=== PATIENT | female | born 1965 | race Caucasian/White ===

== ENCOUNTER 2016-05-26 23:19 | Emergency (ER) | payer OTHER ==
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
--- NOTE | 2016-05-27 00:23 | ED MED RECONCILIATION SUMMARY ---
Patient: JOHN STROUD Medication Reconciliation Report [facility] VisitID: [id number] [address] [place] [address] 51y, F Registration Date/Time: 05/26/2016 Weight: 95.2 kg Height/Length: 64 in. BMI: 36.1 ALLERGIES: Ampicillin, Contrast, Penicillins The patient's Home Medications are listed below: THE FOLLOWING MEDICATIONS NEED TO BE RECONCILED: Aspirin Low Dose Oral (81 mg) Atorvastatin Calcium Oral 40 mg, daily Chantix Oral Clopidogrel Bisulfate Oral 75 mg, daily Emtriva Oral (200 mg) 1 capsule, daily Losartan Potassium Oral 100 mg, daily Metoprolol Tartrate Oral (100 mg) 1 tablet, 2 times daily Nitroglycerin Selzentry Oral (150 mg) 1 tablet, BID Zetia Oral 10 mg, daily The source(s) of the original Home Medication information: patient The following Medications were given to the patient in the Emergency Department: None. The following Medications were prescribed to the patient: Hydrocodone/APAP 5mg / 325mg: take 1-2 orally every 6 hours as needed for pain. Dispense five (5). No refill. -- Mariano Fernandes MD
--- NOTE | 2016-05-27 00:23 | ED DISCHARGE INSTRUCTIONS ---
Patient: JOHN STROUD General Instructions [facility] VisitID: [id number] [address] [place] [address] 51y, F Registration Date/Time: 05/26/2016 Dental pain. INSTRUCTIONS No driving or operating machinery while taking medication. Warnings: Further evaluation is necessary. GENERAL WARNINGS: Return or contact your physician immediately if your condition worsens or changes unexpectedly, if not improving as expected, or if other problems arise. Prescription Medications: Hydrocodone/APAP 5mg / 325mg: take 1-2 orally every 6 hours as needed for pain. Dispense five (5). No refill. Follow-up: Follow up with a dentist tomorrow as scheduled. ADDITIONAL INFORMATION Dental Pain A crack or cavity in the tooth, which exposes the sensitive inner area of the tooth can cause tooth pain. An infection in the gum or the root of the tooth can cause pain and swelling. The pain is often made worse by drinking hot or cold fluids, or biting on hard foods. Pain may spread from the tooth to the ear or jaw on the same side. Home Care: Avoid hot and cold foods and liquids since your tooth may be sensitive to temperature changes. If your tooth is chipped or cracked, or if there is a large open cavity, apply OIL OF CLOVES (available [id number]-rur-kvqtomy in drug stores) directly to the tooth to reduce pain. Some pharmacies carry an [id number] "toothache kit." This contains a paste, which can be applied over the exposed tooth to decrease sensitivity. A cold pack on your jaw over the sore area may help reduce pain. You may use acetaminophen (Tylenol) or ibuprofen (Motrin, Advil) to control pain, unless another medicine was prescribed. [ NOTE: If you have chronic liver or kidney disease or ever had a stomach ulcer or GI bleeding, talk with your doctor before using these medicines.] If you have signs of an infection, an antibiotic will be given. Take it as directed. Follow-Up as directed with a dentist. Your pain may go away with the treatment given. However, only a dentist can fully evaluate and treat the cause and prevent the pain from coming back again. TOOTHACHE IS A SIGN OF DISEASE IN YOUR TOOTH AND SHOULD BE EXAMINED AND TREATED BY A DENTIST. Get Prompt Medical Attention if any of the following occur: Your face becomes swollen or red Pain worsens or spreads to the neck Fever over 100.4 F (38.0 C) Unusual drowsiness; headache or stiff neck; weakness or fainting Pus drains from the tooth Difficulty swallowing or breathing Hydrocodone Bitartrate, Acetaminophen Oral tablet What is this medicine? ACETAMINOPHEN; HYDROCODONE (a set a JUAN A theresa fen; tanna droe KOE done) is a pain reliever. It is used to treat mild to moderate pain. How should I use this medicine? Take this medicine by mouth. Swallow it with a full glass of water. Follow the directions on the prescription label. If the medicine upsets your stomach, take the medicine with food or milk. Do not take more than you are told to take. Talk to your stock driver regarding the use of this medicine in children. This medicine is not approved for use in children. What side effects may I notice from receiving this medicine? Side effects that you should report to your doctor or health child care leader as soon as possible: allergic reactions like skin rash, itching or hives, swelling of the face, lips, or tongue breathing problems confusion feeling faint or lightheaded, falls stomach pain yellowing of the eyes or skin Side effects that usually do not require medical attention (report to your doctor or health child care leader if they continue or are bothersome): nausea, vomiting stomach upset What may interact with this medicine? alcohol antihistamines isoniazid medicines for depression, anxiety, or psychotic disturbances medicines for sleep muscle relaxants naltrexone narcotic medicines (opiates) for pain phenobarbital ritonavir tramadol What if I miss a dose? If you miss a dose, take it as soon as you can. If it is almost time for your next dose, take only that dose. Do not take double or extra doses. Where should I keep my medicine? Keep out of the reach of children. This medicine can be abused. Keep your medicine in a safe place to protect it from theft. Do not share this medicine with anyone. Selling or giving away this medicine is dangerous and against the law. Store at room temperature between 15 and 30 degrees C (59 and 86 degrees F). Protect from light. Keep container tightly closed. Throw away any unused medicine after the expiration date. Discard unused medicine and used packaging carefully. Pets and children can be harmed if they find used or lost packages. What should I tell my health care provider before I take this medicine? They need to know if you have any of these conditions: brain tumor Crohn's disease, inflammatory bowel disease, or ulcerative colitis drink more than 3 alcohol-containing drinks per day drug abuse or addiction head injury heart or circulation problems kidney disease or problems going to the bathroom liver disease lung disease, asthma, or breathing problems an unusual or allergic reaction to acetaminophen, hydrocodone, other opioid analgesics, other medicines, foods, dyes, or preservatives or trying to get breast-feeding What should I watch for while using this medicine? Tell your doctor or health child care leader if your pain does not go away, if it gets worse, or if you have new or a different type of pain. You may develop tolerance to the medicine. Tolerance means that you will need a higher dose of the medicine for pain relief. Tolerance is normal and is expected if you take the medicine for a long time. Do not suddenly stop taking your medicine because you may develop a severe reaction. Your body becomes used to the medicine. This does NOT mean you are addicted. Addiction is a behavior related to getting and using a drug for a non-medical reason. If you have pain, you have a medical reason to take pain medicine. Your doctor will tell you how much medicine to take. If your doctor wants you to stop the medicine, the dose will be slowly lowered over time to avoid any side effects. You may get drowsy or dizzy when you first start taking the medicine or change doses. Do not drive, use machinery, or do anything that may be dangerous until you know how the medicine affects you. Stand or sit up slowly. There are different types of narcotic medicines (opiates) for pain. If you take more than one type at the same time, you may have more side effects. Give your health care provider a list of all medicines you use. Your doctor will tell you how much medicine to take. Do not take more medicine than directed. Call emergency for help if you have problems breathing. The medicine will cause constipation. Try to have a bowel movement at least every 2 to 3 days. If you do not have a bowel movement for 3 days, call your doctor or health child care leader. Too much acetaminophen can be very dangerous. Do not take Tylenol (acetaminophen) or medicines that contain acetaminophen with this medicine. Many non-prescription medicines contain acetaminophen. Always read the labels carefully. You have been given the following additional information: Dental Pain Hydrocodone Bitartrate, Acetaminophen Oral tablet No driving or operating machinery while taking medication. (Electronically signed by Mariano Fernandes MD 05/27/2016 0:22)
--- NOTE | 2016-05-27 00:23 | ED MAR SUMMARY ---
..... Medication Administration Record [facility] [address] [place], [place] [id number] Patient: JOHN STROUD Visit ID: [id number] 51y, F Weight: 95.2 kg Height/Length: 64 in BMI: 36.1 ALLERGIES: Penicillins, Ampicillin, Contrast
--- NOTE | 2016-05-27 00:23 | ED DISCHARGE INSTRUCTIONS ---
Patient: JOHN STROUD General Instructions [facility] VisitID: [id number] [address] [place] [address] 51y, F Registration Date/Time: 05/26/2016 Dental pain. INSTRUCTIONS No driving or operating machinery while taking medication. Warnings: Further evaluation is necessary. GENERAL WARNINGS: Return or contact your physician immediately if your condition worsens or changes unexpectedly, if not improving as expected, or if other problems arise. Prescription Medications: Hydrocodone/APAP 5mg / 325mg: take 1-2 orally every 6 hours as needed for pain. Dispense five (5). No refill. Follow-up: Follow up with a dentist tomorrow as scheduled. ADDITIONAL INFORMATION Dental Pain A crack or cavity in the tooth, which exposes the sensitive inner area of the tooth can cause tooth pain. An infection in the gum or the root of the tooth can cause pain and swelling. The pain is often made worse by drinking hot or cold fluids, or biting on hard foods. Pain may spread from the tooth to the ear or jaw on the same side. Home Care: Avoid hot and cold foods and liquids since your tooth may be sensitive to temperature changes. If your tooth is chipped or cracked, or if there is a large open cavity, apply OIL OF CLOVES (available [id number] in drug stores) directly to the tooth to reduce pain. Some pharmacies carry an [id number]-yyarbtl "toothache kit." This contains a paste, which can be applied over the exposed tooth to decrease sensitivity. A cold pack on your jaw over the sore area may help reduce pain. You may use acetaminophen (Tylenol) or ibuprofen (Motrin, Advil) to control pain, unless another medicine was prescribed. [ NOTE: If you have chronic liver or kidney disease or ever had a stomach ulcer or GI bleeding, talk with your doctor before using these medicines.] If you have signs of an infection, an antibiotic will be given. Take it as directed. Follow-Up as directed with a dentist. Your pain may go away with the treatment given. However, only a dentist can fully evaluate and treat the cause and prevent the pain from coming back again. TOOTHACHE IS A SIGN OF DISEASE IN YOUR TOOTH AND SHOULD BE EXAMINED AND TREATED BY A DENTIST. Get Prompt Medical Attention if any of the following occur: Your face becomes swollen or red Pain worsens or spreads to the neck Fever over 100.4 F (38.0 C) Unusual drowsiness; headache or stiff neck; weakness or fainting Pus drains from the tooth Difficulty swallowing or breathing Hydrocodone Bitartrate, Acetaminophen Oral tablet What is this medicine? ACETAMINOPHEN; HYDROCODONE (a set a JUAN A theresa fen; tanna droe KOE done) is a pain reliever. It is used to treat mild to moderate pain. How should I use this medicine? Take this medicine by mouth. Swallow it with a full glass of water. Follow the directions on the prescription label. If the medicine upsets your stomach, take the medicine with food or milk. Do not take more than you are told to take. Talk to your scrap yard worker regarding the use of this medicine in children. This medicine is not approved for use in children. What side effects may I notice from receiving this medicine? Side effects that you should report to your doctor or health zoo caretaker as soon as possible: allergic reactions like skin rash, itching or hives, swelling of the face, lips, or tongue breathing problems confusion feeling faint or lightheaded, falls stomach pain yellowing of the eyes or skin Side effects that usually do not require medical attention (report to your doctor or health zoo caretaker if they continue or are bothersome): nausea, vomiting stomach upset What may interact with this medicine? alcohol antihistamines isoniazid medicines for depression, anxiety, or psychotic disturbances medicines for sleep muscle relaxants naltrexone narcotic medicines (opiates) for pain phenobarbital ritonavir tramadol What if I miss a dose? If you miss a dose, take it as soon as you can. If it is almost time for your next dose, take only that dose. Do not take double or extra doses. Where should I keep my medicine? Keep out of the reach of children. This medicine can be abused. Keep your medicine in a safe place to protect it from theft. Do not share this medicine with anyone. Selling or giving away this medicine is dangerous and against the law. Store at room temperature between 15 and 30 degrees C (59 and 86 degrees F). Protect from light. Keep container tightly closed. Throw away any unused medicine after the expiration date. Discard unused medicine and used packaging carefully. Pets and children can be harmed if they find used or lost packages. What should I tell my health care provider before I take this medicine? They need to know if you have any of these conditions: brain tumor Crohn's disease, inflammatory bowel disease, or ulcerative colitis drink more than 3 alcohol-containing drinks per day drug abuse or addiction head injury heart or circulation problems kidney disease or problems going to the bathroom liver disease lung disease, asthma, or breathing problems an unusual or allergic reaction to acetaminophen, hydrocodone, other opioid analgesics, other medicines, foods, dyes, or preservatives or trying to get breast-feeding What should I watch for while using this medicine? Tell your doctor or health zoo caretaker if your pain does not go away, if it gets worse, or if you have new or a different type of pain. You may develop tolerance to the medicine. Tolerance means that you will need a higher dose of the medicine for pain relief. Tolerance is normal and is expected if you take the medicine for a long time. Do not suddenly stop taking your medicine because you may develop a severe reaction. Your body becomes used to the medicine. This does NOT mean you are addicted. Addiction is a behavior related to getting and using a drug for a non-medical reason. If you have pain, you have a medical reason to take pain medicine. Your doctor will tell you how much medicine to take. If your doctor wants you to stop the medicine, the dose will be slowly lowered over time to avoid any side effects. You may get drowsy or dizzy when you first start taking the medicine or change doses. Do not drive, use machinery, or do anything that may be dangerous until you know how the medicine affects you. Stand or sit up slowly. There are different types of narcotic medicines (opiates) for pain. If you take more than one type at the same time, you may have more side effects. Give your health care provider a list of all medicines you use. Your doctor will tell you how much medicine to take. Do not take more medicine than directed. Call emergency for help if you have problems breathing. The medicine will cause constipation. Try to have a bowel movement at least every 2 to 3 days. If you do not have a bowel movement for 3 days, call your doctor or health zoo caretaker. Too much acetaminophen can be very dangerous. Do not take Tylenol (acetaminophen) or medicines that contain acetaminophen with this medicine. Many non-prescription medicines contain acetaminophen. Always read the labels carefully. You have been given the following additional information: Dental Pain Hydrocodone Bitartrate, Acetaminophen Oral tablet No driving or operating machinery while taking medication. (Electronically signed by Mariano Fernandes MD 05/27/2016 0:22)
--- NOTE | 2016-05-27 00:23 | ED MED RECONCILIATION SUMMARY ---
Patient: JOHN STROUD Medication Reconciliation Report [facility] VisitID: [id number] [address] [place] [address] 51y, F Registration Date/Time: 05/26/2016 Weight: 95.2 kg Height/Length: 64 in. BMI: 36.1 ALLERGIES: Ampicillin, Contrast, Penicillins The patient's Home Medications are listed below: THE FOLLOWING MEDICATIONS NEED TO BE RECONCILED: Aspirin Low Dose Oral (81 mg) Atorvastatin Calcium Oral 40 mg, daily Chantix Oral Clopidogrel Bisulfate Oral 75 mg, daily Emtriva Oral (200 mg) 1 capsule, daily Losartan Potassium Oral 100 mg, daily Metoprolol Tartrate Oral (100 mg) 1 tablet, 2 times daily Nitroglycerin Selzentry Oral (150 mg) 1 tablet, BID Zetia Oral 10 mg, daily The source(s) of the original Home Medication information: patient The following Medications were given to the patient in the Emergency Department: None. The following Medications were prescribed to the patient: Hydrocodone/APAP 5mg / 325mg: take 1-2 orally every 6 hours as needed for pain. Dispense five (5). No refill. -- Mariano Fernandes MD
--- NOTE | 2016-05-27 00:23 | ED MAR SUMMARY ---
..... Medication Administration Record [facility] [address] [place], [place] [id number] Patient: JOHN STROUD Visit ID: [id number] 51y, F Weight: 95.2 kg Height/Length: 64 in BMI: 36.1 ALLERGIES: Penicillins, Ampicillin, Contrast
== END 2016-05-27 00:15 | disposition home or self-care (01) ==
LOC: ED SRH 23:19
DX: K08.89 Other specified disorders of teeth and supporting structures (principal); I25.2 Old myocardial infarction; I10 Essential (primary) hypertension; J98.4 Other disorders of lung; Z79.82 Long term (current) use of aspirin; Z79.899 Other long term (current) drug therapy; F17.210 Nicotine dependence, cigarettes, uncomplicated; Z88.0 Allergy status to penicillin; Z88.1 Allergy status to other antibiotic agents; Z91.041 Radiographic dye allergy status

== ENCOUNTER 2016-08-30 02:28 | Emergency (ER) | payer OTHER ==
--- NOTE | 2016-08-30 04:40 | ED NURSING NOTES ---
Clinical Report - Nurses [facility] [place] [place] [address] 08/30/2016 2:28 Patient: JOHN STROUD NURSING PROGRESS NOTES GENERAL / NEURO / PSYCH: Alert. Oriented X 4. RESPIRATORY: No respiratory distress. SKIN: Skin is warm and dry. ( Shoulder injury. Patient stable at this time.). --02:47 Yaneth Steele. DISPOSITION / DISCHARGE The patient left the Emergency Department before triage; patient was accompanied by a sculpture instructor. The patient appears to be alert, oriented x4, coherent and in no acute distress (Patient yelling upon arrival and departure.). The patient stated is leaving the ED due to the long waiting time. Notified the ED physician of patient departure. Prior to leaving the ED, she was advised to stay for completion of treatment and return if needed. Patient left without signing form prior to leaving. She left the Emergency Department ambulatory and via private vehicle. ( Patient was informed during registration that an RN would be out to get her as soon as possible. RN inquired with patient about her symptoms and found her to be stable and in no immediate distress. Patient left prior to triage.). --04:41 Yaneth Steele. Locked/Released at 08/30/2016 5:50 by Yaneth Steele,
--- NOTE | 2016-08-30 04:40 | ED CLINICAL REPORT ---
Clinical Report - Physicians/Mid Levels [facility] [address] [place] [place] [address] 08/30/2016 2:28 Patient: JOHN STROUD *This is a preliminary document and is subject to change Time Seen: 02:54; initial patient contact. Ralf Blevins Dr.
--- NOTE | 2016-08-30 04:40 | ED NURSING NOTES ---
Clinical Report - Nurses [facility] [place] [address] 08/30/2016 2:28 Patient: JOHN STROUD NURSING PROGRESS NOTES GENERAL / NEURO / PSYCH: Alert. Oriented X 4. RESPIRATORY: No respiratory distress. SKIN: Skin is warm and dry. ( Shoulder injury. Patient stable at this time.). --02:47 Yaneth Steele. DISPOSITION / DISCHARGE The patient left the Emergency Department before triage; patient was accompanied by a web engineer. The patient appears to be alert, oriented x4, coherent and in no acute distress (Patient yelling upon arrival and departure.). The patient stated is leaving the ED due to the long waiting time. Notified the ED physician of patient departure. Prior to leaving the ED, she was advised to stay for completion of treatment and return if needed. Patient left without signing form prior to leaving. She left the Emergency Department ambulatory and via private vehicle. ( Patient was informed during registration that an RN would be out to get her as soon as possible. RN inquired with patient about her symptoms and found her to be stable and in no immediate distress. Patient left prior to triage.). --04:41 Yaneth Steele. Locked/Released at 08/30/2016 5:50 by Yaneth Steele,
--- NOTE | 2016-08-30 04:40 | ED CLINICAL REPORT ---
Clinical Report - Physicians/Mid Levels [facility] [address] [place] [address] 08/30/2016 2:28 Patient: JOHN STROUD *This is a preliminary document and is subject to change Time Seen: 02:54; initial patient contact. Ralf Blevins Dr.
--- NOTE | 2016-08-30 20:49 | ED MAR SUMMARY ---
..... Medication Administration Record [facility] [address] [place], [place] [id number] Patient: JOHN STROUD Kimberlee Visit ID: [id number] 51y, F Weight: (not available) Height/Length: (not available) BMI: (not available) ALLERGIES:
--- NOTE | 2016-08-30 20:49 | ED MED RECONCILIATION SUMMARY ---
Patient: JOHN STROUD Medication Reconciliation Report [facility] VisitID: [id number] [address] [place] [address] 51y, F Registration Date/Time: 08/30/2016 Weight: (not available) Height/Length: (not available) BMI: (not available) ALLERGIES: The patient's Home Medications are listed below: Not obtained. The source(s) of the original Home Medication information: Not obtained. The following Medications were given to the patient in the Emergency Department: None. The following Medications were prescribed to the patient: None.
--- NOTE | 2016-08-30 20:49 | ED MED RECONCILIATION SUMMARY ---
Patient: JOHN STROUD Medication Reconciliation Report [facility] VisitID: [id number] [address] [place] [place] [address] 51y, F Registration Date/Time: 08/30/2016 Weight: (not available) Height/Length: (not available) BMI: (not available) ALLERGIES: The patient's Home Medications are listed below: Not obtained. The source(s) of the original Home Medication information: Not obtained. The following Medications were given to the patient in the Emergency Department: None. The following Medications were prescribed to the patient: None.
--- NOTE | 2016-08-30 20:49 | ED MAR SUMMARY ---
..... Medication Administration Record [facility] [address] [place], [place] [id number] Patient: JOHN STROUD Kimberlee Visit ID: [id number] 51y, F Weight: (not available) Height/Length: (not available) BMI: (not available) ALLERGIES:
== END 2016-08-30 03:39 | disposition left against medical advice (07) ==
LOC: ED SRH 02:28
DX: Z53.21 Procedure and treatment not carried out due to patient leaving prior to being seen by health care provider (principal)

== ENCOUNTER 2016-09-11 11:17 | Emergency (ER) | payer OTHER ==
--- NOTE | 2016-09-11 13:17 | DIAGNOSTIC IMAGING REPORT ---
PROCEDURE: XR CHEST 1 VIEW INDICATION: CHEST PAIN TECHNIQUE: Portable AP view 12:57 p.m. COMPARISON: Chest 12/22/2014 FINDINGS: Lungs are clear. Heart and mediastinum are normal. Thorax is normal. IMPRESSION: 1. Negative chest.
--- NOTE | 2016-09-11 14:58 | ED ORDER SUMMARY ---
..... Patient: JOHN STROUD OrderSheet [facility] VisitID: [id number] [place] [address] 51y, F Registration Date/Time: 09/11/2016 ORDER SHEET Weight: 97.5 kg (measured) Allergies: PCN, CONTRAST DYE, Amoxicillin GENERAL ORDERS: ---- (12:43 09/11/2016 Debbie R.NPlacido verbal order read back to Pawan Rivera) (Cancelled: Other13:44 Sarthakeck R.N.) Chest 1V Urgent (12:48 09/11/2016 Pawan Rivera) (Ack 12:51 Maximino) (12:57 oberts R.N.) Cardiac Panel Stat (12:49 09/11/2016 Pawan Rivera) (Ack 12:51 Maximino) (21:26 oberts R.N.) Urine Drug Screen Urgent (12:49 09/11/2016 Pawan Rivera) (Ack 12:51 Maximino) (21:26 SRoberts R.N.) UA-Culture if indicated Urgent (12:49 09/11/2016 Pawan Rivera) (Ack 12:51 Maximino) (21:26 SRoberts R.N.) EKG - ER Stat (12:49 09/11/2016 Pawan Rivera) (Ack 12:51 Maximino) (21:26 SRoberts R.N.) MEDICATION ORDERS: - (12:42 09/11/2016 Debbie Puga verbal order read back to Pawan Rivera) (Cancelled: Other12:42 Sarthakeck R.N.) -- -- (White GI Cocktail 30ml PO) (12:43 09/11/2016 Debbie RPlacidoNPlacido verbal order read back to Pawan Rivera) (12:44 Sarthakeck R.N.) IV FLUIDS: IV NS : initial bolus none -, then 1000 mL/hr for X1 (NOW) (12:49 09/11/2016 Pawan Rivera) (13:00 oberdevin R.N.) ORDER SHEET NOTES: [Electronically signed by Dilcia Quiñonez R.N. (:09/11/2016)] [Electronically signed by Ralf Blevins Dr. (08:49 09/14/2016)] [Electronically locked/signed by Dilcia Quiñonez R.N. (:09/11/2016)]
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
--- NOTE | 2016-09-11 14:58 | ED ORDER SUMMARY ---
..... Patient: JOHN STROUD OrderSheet [facility] VisitID: [id number] [place] [address] 51y, F Registration Date/Time: 09/11/2016 ORDER SHEET Weight: 97.5 kg (measured) Allergies: PCN, CONTRAST DYE, Amoxicillin GENERAL ORDERS: ---- (12:43 09/11/2016 Debbie R.NPlacido verbal order read back to Pawan Rivera) (Cancelled: Other13:44 Sarthakeck R.N.) Chest 1V Urgent (12:48 09/11/2016 Pawan Rivera) (Ack 12:51 Maximino) (12:57 oberts R.N.) Cardiac Panel Stat (12:49 09/11/2016 Pawan Rivera) (Ack 12:51 Maximino) (21:26 oberts R.N.) Urine Drug Screen Urgent (12:49 09/11/2016 Pawan Rivera) (Ack 12:51 Maximino) (21:26 SRoberts R.N.) UA-Culture if indicated Urgent (12:49 09/11/2016 Pawan Rivera) (Ack 12:51 Maximino) (21:26 SRoberts R.N.) EKG - ER Stat (12:49 09/11/2016 Pawan Rivera) (Ack 12:51 Maximino) (21:26 SRoberts R.N.) MEDICATION ORDERS: - (12:42 09/11/2016 Debbie Puga verbal order read back to Pawan Rivera) (Cancelled: Other12:42 Sarthakeck R.N.) -- -- (White GI Cocktail 30ml PO) (12:43 09/11/2016 Debbie RPlacidoNPlacido verbal order read back to Pawan Rivera) (12:44 Sarthakeck R.N.) IV FLUIDS: IV NS : initial bolus none -, then 1000 mL/hr for X1 (NOW) (12:49 09/11/2016 Pawan Rivera) (13:00 oberdevin R.N.) ORDER SHEET NOTES: [Electronically signed by Dilcia Quiñonez R.N. (:09/11/2016)] [Electronically signed by Ralf Blevins Dr. (08:49 09/14/2016)] [Electronically locked/signed by Dilcia Quiñonez R.N. (:09/11/2016)]
--- NOTE | 2016-09-14 08:50 | ED MAR SUMMARY ---
..... Medication Administration Record [facility] [address] [place] [address] Patient: JOHN STROUD Visit ID: [id number] 51y, F Weight: 97.5 kg Height/Length: 64 in BMI: 36.9 ALLERGIES: Amoxicillin, CONTRAST DYE, PCN Given 12:40 09/11/2016 Juanjose Aguirre R.N. Medication Administered: GI COCKTAIL WHITE [PO] (SIMETHICONE), Dose: 30 mL Oral Suspension PO. Medication Ordered: -- -- (White GI Cocktail 30ml PO). Start 13:00 09/11/2016 Dilcia Quiñonez R.NPlacido, Stop 14:00 09/11/2016 Dilcia Quiñonez R.N. Medication Administered: IV NS (SALINE), Dose: IV Fluids over 1 hour(s), Rate: 1000 mL/hr, Dispensed: 1000 mL bag, Site: #1 right AC. Medication Ordered: IV NS : initial bolus none -, then 1000 mL/hr for X1 (NOW).
--- NOTE | 2016-09-14 08:50 | ED DISCHARGE INSTRUCTIONS ---
Patient: JOHN STROUD General Instructions [facility] VisitID: [id number] [place] [address] 51y, F Registration Date/Time: 09/11/2016 Atypical chest pain .12 lead EKG performed. INSTRUCTIONS Follow-up: Follow up with your doctor in about three days. Call for an appointment. Blood pressure screening was not performed during this visit because the patient has an active diagnosis of hypertension. ADDITIONAL INFORMATION Chest Pain, Noncardiac Based on your visit today, the exact cause of your chest pain is not certain. Your condition does not seem serious and your pain does not appear to be coming from your heart. However, sometimes the signs of a serious problem take more time to appear. Therefore, please watch for the warning signs listed below. Home Care: Rest today and avoid strenuous activity. Take any prescribed medicine as directed. Follow Up with your doctor or this facility as instructed or if you do not start to feel better within 24 hours. Get Prompt Medical Attention if any of the following occur: A change in the type of pain: if it feels different, becomes more severe, lasts longer, or begins to spread into your shoulder, arm, neck, jaw or back Shortness of breath or increased pain with breathing Cough with dark colored sputum (phlegm) or blood Weakness, dizziness, or fainting Fever of 100.4F (38C) or higher, or as directed by your healthcare provider Swelling, pain or redness in one leg You have been given the following additional information: Chest Pain, Noncardiac (Electronically signed by Ralf Blevins Dr. 09/14/2016 8:49)
--- NOTE | 2016-09-14 08:50 | ED DISCHARGE INSTRUCTIONS ---
Patient: JOHN STROUD General Instructions [facility] VisitID: [id number] [place] [address] 51y, F Registration Date/Time: 09/11/2016 Atypical chest pain .12 lead EKG performed. INSTRUCTIONS Follow-up: Follow up with your doctor in about three days. Call for an appointment. Blood pressure screening was not performed during this visit because the patient has an active diagnosis of hypertension. ADDITIONAL INFORMATION Chest Pain, Noncardiac Based on your visit today, the exact cause of your chest pain is not certain. Your condition does not seem serious and your pain does not appear to be coming from your heart. However, sometimes the signs of a serious problem take more time to appear. Therefore, please watch for the warning signs listed below. Home Care: Rest today and avoid strenuous activity. Take any prescribed medicine as directed. Follow Up with your doctor or this facility as instructed or if you do not start to feel better within 24 hours. Get Prompt Medical Attention if any of the following occur: A change in the type of pain: if it feels different, becomes more severe, lasts longer, or begins to spread into your shoulder, arm, neck, jaw or back Shortness of breath or increased pain with breathing Cough with dark colored sputum (phlegm) or blood Weakness, dizziness, or fainting Fever of 100.4F (38C) or higher, or as directed by your healthcare provider Swelling, pain or redness in one leg You have been given the following additional information: Chest Pain, Noncardiac (Electronically signed by Ralf Blevins Dr. 09/14/2016 8:49)
--- NOTE | 2016-09-14 08:50 | ED MAR SUMMARY ---
..... Medication Administration Record [facility] [address] [place] [address] Patient: JOHN STROUD Visit ID: [id number] 51y, F Weight: 97.5 kg Height/Length: 64 in BMI: 36.9 ALLERGIES: Amoxicillin, CONTRAST DYE, PCN Given 12:40 09/11/2016 Juanjose Aguirre R.N. Medication Administered: GI COCKTAIL WHITE [PO] (SIMETHICONE), Dose: 30 mL Oral Suspension PO. Medication Ordered: -- -- (White GI Cocktail 30ml PO). Start 13:00 09/11/2016 Dilcia Quiñonez R.NPlacido, Stop 14:00 09/11/2016 Dilcia Quiñonez R.N. Medication Administered: IV NS (SALINE), Dose: IV Fluids over 1 hour(s), Rate: 1000 mL/hr, Dispensed: 1000 mL bag, Site: #1 right AC. Medication Ordered: IV NS : initial bolus none -, then 1000 mL/hr for X1 (NOW).
--- NOTE | 2016-09-14 08:50 | ED MED RECONCILIATION SUMMARY ---
Patient: JOHN STROUD Medication Reconciliation Report [facility] VisitID: [id number] [address] [place] [address] 51y, F Registration Date/Time: 09/11/2016 Weight: 97.5 kg Height/Length: 64 in. BMI: 36.9 ALLERGIES: Amoxicillin, CONTRAST DYE, PCN The patient's Home Medications are listed below: THE FOLLOWING MEDICATIONS NEED TO BE RECONCILED: Atenolol day Gabapentin Oral 300 mg, 2x a day Metoprolol Tartrate Oral, day Wellbutrin 150mg bid Zantac 150mg BID The source(s) of the original Home Medication information: patient The following Medications were given to the patient in the Emergency Department: GI COCKTAIL WHITE [PO] PO 30 mL, administered: 09/11/2016 12:40:00 PM IV NS IV Fluids bolus 0, then 1000 mL/hr, administered: 09/11/2016 1:00:00 PM The following Medications were prescribed to the patient: None.
--- NOTE | 2016-09-14 08:50 | ED MED RECONCILIATION SUMMARY ---
Patient: JOHN STROUD Medication Reconciliation Report [facility] VisitID: [id number] [address] [place] [address] 51y, F Registration Date/Time: 09/11/2016 Weight: 97.5 kg Height/Length: 64 in. BMI: 36.9 ALLERGIES: Amoxicillin, CONTRAST DYE, PCN The patient's Home Medications are listed below: THE FOLLOWING MEDICATIONS NEED TO BE RECONCILED: Atenolol day Gabapentin Oral 300 mg, 2x a day Metoprolol Tartrate Oral, day Wellbutrin 150mg bid Zantac 150mg BID The source(s) of the original Home Medication information: patient The following Medications were given to the patient in the Emergency Department: GI COCKTAIL WHITE [PO] PO 30 mL, administered: 09/11/2016 12:40:00 PM IV NS IV Fluids bolus 0, then 1000 mL/hr, administered: 09/11/2016 1:00:00 PM The following Medications were prescribed to the patient: None.
== END 2016-09-11 15:00 | disposition home or self-care (01) ==
LOC: ED SRH 11:17
DX: R07.89 Other chest pain (principal); I10 Essential (primary) hypertension; F17.210 Nicotine dependence, cigarettes, uncomplicated; Z79.899 Other long term (current) drug therapy; Z88.0 Allergy status to penicillin; Z88.1 Allergy status to other antibiotic agents; Z91.041 Radiographic dye allergy status; F12.10 Cannabis abuse, uncomplicated
CPT/HCPCS: 90004; 90100; 90616; 92610; 92720; 92760; 92761; 92762; 92763; 92764; 92765; 92766; 92767; 95059